=== PATIENT | female | born 1975 ===

== ENCOUNTER 2022-12-01 23:52 | Emergency (ER) | payer SELFPAY ==
--- NOTE | ~2022-12-01 | CT_ITS ---
EXAMINATION: CT ABDOMEN AND PELVIS WITHOUT CONTRAST CLINICAL INFORMATION: Left flank pain. COMPARISON: None available. TECHNIQUE: Multidetector volumetric imaging was performed from the superior aspect of the liver through the pubic symphysis. Sagittal and coronal reformatted images were obtained on the technologist's workstation. This CT examination was performed using dose optimization techniques as appropriate, variously including the following: *Automated exposure control *Adjustment of mA and/or kV according to patient size (this includes techniques or standardized protocols for targeted exams where dose is matched to indication/reason for exam; i.e. extremities or head) *Use of iterative reconstruction technique DLP: 447 mGy-cm FINDINGS: LUNG BASES: The visualized lung bases are unremarkable. LIVER, GALLBLADDER, AND BILIARY TREE: The liver is normal in size, shape, and attenuation. There are a few scattered benign hepatic cysts. No suspicious liver lesions. No biliary ductal dilatation is present. The gallbladder is unremarkable with no evidence of radiopaque gallstones, gallbladder wall thickening, or obvious pericholecystic inflammatory changes. PANCREAS: Unremarkable. SPLEEN: Unremarkable. ADRENAL GLANDS: Unremarkable. KIDNEYS AND URETERS: There is a 4 mm calculus in the proximal left ureter, just distal to the ureteropelvic junction at the level of L2 associated with moderate hydronephrosis and perinephric stranding. Additional punctate nonobstructive calculus in the midpole of the left kidney, and at least 2 punctate nonobstructive calculi in the right kidney. BLADDER: Unremarkable. GASTROINTESTINAL TRACT: The small and large bowel are unremarkable. The appendix is unremarkable. ABDOMINAL WALL: No significant hernia is appreciated. LYMPH NODES: Normal. VASCULAR: Unremarkable. PELVIC VISCERA: Presumably leiomyomatous uterus, with prominent posterior subserosal fibroid measuring over 6 cm. No adnexal abnormalities. OSSEOUS STRUCTURES: Unremarkable. CT/CT abdomen pelvis wo IV con IMPRESSION: * There is a 4 mm calculus in the proximal LEFT ureter, just distal to the ureteropelvic junction associated with moderate hydronephrosis and perinephric stranding. * Additional punctate nonobstructive intrarenal calculi bilaterally. * Leiomyomatous uterus.
[2022-12-02 00:07] VITALS: BP 123/64; PULSE 75; RESP 20; O2SAT 98; BMI 23.3
--- NOTE | 2022-12-02 00:48 | ED_ITS ---
HPI - Abdominal Pain General Chief Complaint: Abdominal Pain Stated Complaint: ?Renal Colic, vomiting Time Seen by Provider: 12/02/22 00:12 Source: patient Mode of arrival: ambulatory Limitations: no limitations History of Present Illness HPI narrative: Patient history of kidney stone about 6- 7 years ago comes here for acute onset of pain on left flank area 1 hour prior to arrival associated with nausea vomiting pain is sharp in character radiating into the left abdomen no hematuria no urinary symptoms no fever or chills Related Data Allergies Allergy/AdvReac Type Severity Reaction Status Date / Time No Known Allergies Allergy Verified 12/02/22 00:49 Review of Systems Review of Systems Yes all other systems are reviewed and are negative PMFSH Social History Social History Alcohol intake: never Smoked in Last 30 Days: No Use of substances other than those prescribed or required for medical reasons: No Advance Directives: No Advance Directives Information Provided: Yes Physical Exam ED Vital Signs: Vital Signs - 24 hr 12/02/22 00:07 12/02/22 02:10 Temperature 98.2 F Pulse Rate 75 76 Respiratory Rate 20 Blood Pressure 123/64 121/60 Pulse Oximetry 98 100 Oxygen Delivery Method Room Air Room Air BMI result Body Mass Index 23.3 Appearance: Alert. Oriented X3. In moderate distress. ENT: Pharynx normal. Oral Mucosa moist Neck: Normal inspection. Neck supple. CVS: Normal heart rate and rhythm. Pulses normal. Respiratory: No respiratory distress. Equal air entry bilateral, no wheezing/rales/rhonchi Abdomen: Soft and nontender. Bowel sounds are present, no mass palpable, L CVA tenderness ++ Skin: Skin warm and dry. Normal skin color. Normal skin turgor. Extremities: No lower extremity edema. No calf tenderness Neuro: Oriented X 3. No motor deficit. Medical Decision Making Medical Decision Making MDM Narrative: Patient left flank pain acute in onset sharp in character with history of kidney stone likely kidney stone will check the CT scan patient signed out to Dr. Oquendo pending CT scan results Lab Data [facility] Lab Attestation statement: I reviewed the patient's lab results. 12/02/22 00:46 12/02/22 00:46 Labs: Lab Results 12/02/22 12/02/22 Range/Units 00:46 00:46 WBC 11.0 H (4.8-10.8) X10*3/uL RBC 4.08 L (4.20-5.50) X10*6/uL Hgb 10.7 L (12.0-16.0) g/dl Hct 32.4 L (37.0-47.0) % MCV 79.4 L (80.0-98.0) fL MCH 26.2 L (27.0-33.0) pg MCHC 33.0 (31.0-35.0) g/dl RDW 13.9 (11.0-16.0) % Plt Count 170 (160-400) X10*3/uL MPV 12.8 H (9.4-12.3) fL Immature Gran % (Auto) 0.3 (0.0-0.4) % Neut % (Auto) 75.2 H (45-73) % Lymph % (Auto) 17.2 L (20-40) % Hodgeman % (Auto) 5.1 (2-11) % Eos % (Auto) 1.9 (0-4) % Baso % (Auto) 0.3 (0-2) % Lymph # (Auto) 1.9 (1.2-4.9) X10*3/uL Hodgeman # (Auto) 0.6 (0.1-1.2) X10*3/uL Eos # (Auto) 0.2 (0.0-0.4) X10*3/uL Baso # (Auto) 0.0 (0.0-0.2) X10*3/uL Abs Immat Gran (auto) 0.03 (0.00-0.03) X10*3/uL Absolute Neuts (auto) 8.3 (2.0-8.3) x10*3/uL Absolute Nucleated RBC 0.000 (0.0-0.012) X10*3/uL Nucleated RBC % (auto) 0.0 (0.0-0.2) /100WBC Sodium 138 (135-145) mmol/L Potassium 3.6 (3.3-5.1) mmol/L Chloride 105 (96-108) mmol/L Carbon Dioxide 22 (22-29) mmol/L Anion Gap 15 (12-20) BUN 11 (9-16) mg/dL Creatinine 0.90 (0.5-1.4) mg/dL Estim Creat Clear Calc 69.5 Estimated GFR > 60 Random Glucose 138 H (60-115) mg/dL Calcium 9.2 (8.4-10.2) mg/dL Medications Administered Discontinued Medications Generic Name Dose Route Start Last Admin Trade Name Freq PRN Reason Stop Dose Admin Sodium Chloride 1,000 mls @ 999 mls/hr 12/02/22 00:49 12/02/22 01:57 Ns IV 12/02/22 01:49 Infused .Q1H1M ONE Infusion Ketorolac Tromethamine 15 mg 12/02/22 00:43 12/02/22 00:53 Ketorolac Tromethamine 30 Mg/Ml Vial IVPUSH 12/02/22 00:44 15 mg ONCE ONE Administration Morphine Sulfate 4 mg 12/02/22 00:49 12/02/22 00:58 Morphine Sulfate 4 Mg/Ml Cartridge IVPUSH 12/02/22 00:50 4 mg ONCE ONE Administration Protocol Ondansetron HCl 4 mg 12/02/22 00:43 12/02/22 00:53 Ondansetron Hcl 4 Mg/2 Ml Vial IVPUSH 12/02/22 00:44 4 mg ONCE ONE Administration Discharge Plan Discharge Clinical Impression: Calculus of kidney Patient Disposition: Home, Self-Care Instructions: Kidney Stones (ED) Additional Instructions: Drink plenty of fluids Pain medication and flomax as prescribed Follow-up with urologist
[2022-12-02 00:50] LABS: MANUAL DIFF FLAG NO
[2022-12-02] MEDS: 0.9 % Sodium Chloride 1,000 ML 999 ML IV (00:53)
[2022-12-02] MEDS: Ketorolac Tromethamine 30 MG/ML VIAL 15 MG IVPUSH (00:53)
[2022-12-02] MEDS: ondansetron HCL 4 MG/2 ML VIAL IVPUSH (00:53)
[2022-12-02] MEDS: Morphine Sulfate 4 MG/ML CARTRIDGE IVPUSH (00:58)
[2022-12-02 01:06] LABS: Anion Gap 15 (12-20); Blood Urea Nitrogen 11 mg/dL (9-16); Calcium 9.2 mg/dL (8.4-10.2); Carbon Dioxide 22 mmol/L (22-29); Chloride 105 mmol/L (96-108); Creatinine Clr Calc Pharmacy 69.5; Estimated Glomerular Filt Rate > 60; Glucose Random 138 mg/dL (60-115); Potassium 3.6 mmol/L (3.3-5.1); Sodium 138 mmol/L (135-145)
[2022-12-02 01:07] LABS: Basophils Percent Auto 0.3 % (0-2); Eosinophils Absolute Auto 0.2 X10*3/uL (0.0-0.4); Eosinophils Percent Auto 1.9 % (0-4); Hematocrit 32.4 % (37.0-47.0); Hemoglobin 10.7 g/dl (12.0-16.0); Imm Gran Abs Auto 0.03 X10*3/uL (0.00-0.03); Imm Gran Pct Auto 0.3 % (0.0-0.4); Lymphocytes Absolute Auto 1.9 X10*3/uL (1.2-4.9); Lymphocytes Percent Auto 17.2 % (20-40); Mean Corpuscular Hemoglobin 26.2 pg (27.0-33.0); Mean Corpuscular Volume 79.4 fL (80.0-98.0); Mean Platelet Volume 12.8 fL (9.4-12.3); Monocytes Absolute Auto 0.6 X10*3/uL (0.1-1.2); Monocytes Percent Auto 5.1 % (2-11); Neutrophils Absolute Auto 8.3 x10*3/uL (2.0-8.3); Neutrophils Percent Auto 75.2 % (45-73); Platelet Count 170 X10*3/uL (160-400); Red Blood Count 4.08 X10*6/uL (4.20-5.50); Red Cell Distribution Width 13.9 % (11.0-16.0)
[2022-12-02 02:10] VITALS: BP 121/60; PULSE 76; TEMP 36.8; O2SAT 100
[2022-12-02 02:21] LABS: Appearance Urine Cloudy; Color Urine Yellow; Glucose Urine UA Negative (Negative); Leukocyte Esterase Urine Trace (Negative); Nitrite Urine Negative (Negative); Specific Gravity - Urine 1.025 (1.005-1.025); UMIC TRIGGER UACC YES; Urine Blood Large (3+) (Negative); Urine Ketones 15 mg/dL (Negative); Urine Protein 100 (2+) mg/dL (Neg-Trace)
[2022-12-02 02:26] LABS: Bacteria Urine None Seen (None Seen); RBC Urine >20 /HPF (0-2); Squamous Epithelial Cell Urine 0-2 /HPF (0-2); UACC Culture Trigger YES; UPreg QC Valid YES; Urine Pregnancy NEGATIVE (NEGATIVE)
[2022-12-02 05:05] VITALS: BP 111/67; PULSE 67; RESP 16; O2SAT 100
--- NOTE | 2022-12-02 05:11 | PC.NURSE ---
pt reports effectiveness to pain meds given.
== END 2022-12-02 05:13 | disposition home or self-care (01) ==
PROVIDERS: Emergency Provider Internal Medicine
DX: N13.2 Hydronephrosis with renal and ureteral calculous obstruction (principal); N39.0 Urinary tract infection, site not specified; Z87.442 Personal history of urinary calculi
CPT/HCPCS: 36415; 74176; 80048; 81001; 81025; 85025; 87086; 96361; 96374; 96375; 99284; 99285; J1885; J2270; J2405